=== PATIENT | male | born 1980 | race Caucasian/White ===

== ENCOUNTER 2018-02-16 19:43 | Emergency (ER) | payer MEDICAID ==
[~2018-02-16] VITALS: Ht 188 cm; Wt 104.5 kg
[2018-02-16] MEDS ORDERED: TETanus/Pertussis (Acell)/Diphther VAC/PF (Tdap-Adult) 0.5ml syringe IM ONE (23:10)
[2018-02-16 23:14] VITALS: BP 140/69
[2018-02-16] MEDS ORDERED: SULF1TAB49 PO (23:36)
[2018-02-16] MEDS ORDERED: sulfamethoxazole/trimethoprim DS (800/160mg) tablet PO ONE (23:40)
== END 2018-02-17 00:15 | disposition home or self-care (01) ==
LOC: ER 19:44
DX: S91.332A Puncture wound without foreign body, left foot, initial encounter (principal); L03.116 Cellulitis of left lower limb; Z88.1 Allergy status to other antibiotic agents; W26.8XXA Contact with other sharp object(s), not elsewhere classified, initial encounter; Y93.89 Activity, other specified; Y99.8 Other external cause status; Y92.89 Other specified places as the place of occurrence of the external cause
CPT/HCPCS: 73630; 90471; 90715; 99283

== ENCOUNTER 2021-07-17 07:32 | Emergency (ER) | payer MEDICAID ==
[~2021-07-17] VITALS: Ht 188 cm; Wt 98.2 kg
[2021-07-17 07:59] VITALS: BP 123/80
[2021-07-17] MEDS ORDERED: naproxen 500mg tablet PO ONE (09:00)
[2021-07-17] MEDS ORDERED: traMADol 50MG tablet PO ONE (09:00)
[2021-07-17] MEDS ORDERED: cyclobenzaprine 10mg tablet PO ONE (09:00)
[2021-07-17] MEDS ORDERED: TRAM50TA2 PO (09:04)
[2021-07-17] MEDS ORDERED: CYCL-1 PO (09:04)
[2021-07-17] MEDS ORDERED: NAPR-56 PO (09:04)
[2021-07-17] MEDS ORDERED: dexamethasone 4mg tablet PO ONE (09:45)
== END 2021-07-17 10:27 | disposition home or self-care (01) ==
LOC: ER 07:33
DX: M62.830 Muscle spasm of back (principal); M54.6 Pain in thoracic spine; F17.200 Nicotine dependence, unspecified, uncomplicated; Z88.1 Allergy status to other antibiotic agents; Z79.899 Other long term (current) drug therapy
CPT/HCPCS: 72070; 99284

== ENCOUNTER 2022-05-26 10:48 | Emergency (ER) | payer MEDICAID ==
[~2022-05-26] VITALS: Ht 188 cm; Wt 100.0 kg
[~2022-05-26 10:48] MED LIST: CYCL-1 PO
[2022-05-26 15:09] VITALS: BP 128/89
== END 2022-05-26 15:10 | disposition home or self-care (01) ==
LOC: ER 10:48
DX: S93.401A Sprain of unspecified ligament of right ankle, initial encounter (principal); Z88.1 Allergy status to other antibiotic agents; Z79.899 Other long term (current) drug therapy; X58.XXXA Exposure to other specified factors, initial encounter; Y93.89 Activity, other specified; Y92.89 Other specified places as the place of occurrence of the external cause; Y99.8 Other external cause status
CPT/HCPCS: 73610; 99283; A6449